=== PATIENT | male | born 1970 | race African-American/Black ===

== ENCOUNTER 2020-06-13 21:46 | Emergency (ER) | payer BC, MEDICAID ==
[~2020-06-13] VITALS: Ht 180.3 cm; Wt 95.0 kg
[2020-06-13] MEDS ORDERED: BACITRACIN ZINC OINT UDPKT TOP ONE (22:45)
[2020-06-13] MEDS ORDERED: LIDOCAINE HCL/EPINEPHRINE 1%-EPI 1:100,000 10 ML VIAL IJ ONE (23:30)
[2020-06-14] MEDS ORDERED: ACET-2708 MT (00:09)
[2020-06-14] MEDS ORDERED: CEPH500C2 MT (00:09)
[2020-06-14 01:11] VITALS: BP 128/82
== END 2020-06-14 01:13 | disposition home or self-care (01) ==
LOC: ER 21:46
DX: S91.114A Laceration without foreign body of right lesser toe(s) without damage to nail, initial encounter (principal); E11.9 Type 2 diabetes mellitus without complications; I10 Essential (primary) hypertension; Z90.49 Acquired absence of other specified parts of digestive tract; W22.8XXA Striking against or struck by other objects, initial encounter; Y93.89 Activity, other specified; Y92.018 Other place in single-family (private) house as the place of occurrence of the external cause
CPT/HCPCS: 12002; 99283; A4217; J3490; Z7610